=== PATIENT | male | born 1965 | race Asian ===

== ENCOUNTER → 2021-07-04 15:06 | Outpatient (BNVA) | payer OTHER, SELFPAY | PROVIDERS: PCP Internal Medicine; Referring Provider Internal Medicine; Visit Provider Nurse Practitioner Family | DX: Z12.11 Encounter for screening for malignant neoplasm of colon (principal); K62.5 Hemorrhage of anus and rectum | CPT/HCPCS: 99202 ==

== ENCOUNTER → 2021-08-07 08:21 | Outpatient (BNVA) | payer OTHER, SELFPAY | PROVIDERS: PCP Internal Medicine; Visit Provider Surgery | DX: K62.5 Hemorrhage of anus and rectum (principal) | CPT/HCPCS: 46600; 99202 ==

== ENCOUNTER 2021-08-08 09:42 | Day surgery (SDC) | payer OTHER, SELFPAY ==
[2021-07-20 11:21] VITALS: BMI 21.9
--- NOTE | 2021-08-08 10:05 | MHC.SHP ---
Pre-Procedural Eval Section A Date of Service: 08/08/21 The patient is an INPATIENT: No The History & Physical has been completed within 30 days and I have reviewed it.: No Section B Chief Complaint: Colon cancer screening, rectal bleeding Details of Present Illness: Colon cancer screening, rectal bleeding Relevant Family History (Specify if Yes): Yes Relevant Social History: None Present Medications: see Short Stay Collaborative assessment Medical History: Significant History (GERD, elevated cholesterol) History of Previous Operations: Relevant previous surgery/procedure and date(s) (Hx of hemorrhoidectomy Hx of inguinal hernia repair Hx of umbilical hernia repair) Allergies: Allergies Allergy/AdvReac Type Severity Reaction Status Date / Time No Known Allergies Allergy Verified 08/07/21 08:32 Review of Systems Sugical H&P ROS: Negative: Constitution, Cardiovascular and Respiratory and Yes, Specify: Gastrointestinal (rectal bleeding) Exam Surgical H&P Exam: Normal: Heart, Normal: Lungs, Normal: Extremities and Normal: Abdomen Plan Diagnosis/Plan: Unchanged I have reviewed the history and physical and performed a pertinent physical examination on my patient. No changes have occurred unless specified.
--- NOTE | 2021-08-08 10:07 | PM.OP ---
Brief Operative Note Date of Service: 08/08/21 Pre-op diagnosis: Colon cancer screening, rectal bleeding Post-op diagnosis: other (Rectal polyps, diverticulosis, hemorrhoids) Procedure: COLONOSCOPY TILL CECUM WITH SNARE POLYPECTOMY AND BIOPSIES Consent: Indications for the procedure and potential complications of bleeding, perforation, reaction to medications and missed diagnosis were discussed with the patient and informed consent was obtained. Instrument: Olympus PCF H 190 L variable stiffness pediatric colonoscope Monitoring: Vital signs and clinical assessment, intermittent blood pressure monitoring, continuous EKG monitoring, Pulse oximetry and Carbon Dioxide monitoring were done throughout the procedure. Colon withdrawl time was 25 minutes. Procedure: The patient was placed in the left lateral decubitis position and pre-procedure medications were administered. After a digital rectal examination of the ano-rectum, the video colonoscope was inserted into the rectum and advanced through the colon to the cecum. The colonoscope was slowly withdrawn in a retrograde panoramic fashion and the colon mucosa was carefully examined including a retroflexed view of the rectum. Findings and interventions are described below. Procedure Difficulty: Without difficulty Findings: Terminal Ileum: Not evaluated Cecum: Normal Ascending Colon: Normal Transverse Colon: Normal Descending Colon: Normal Sigmoid Colon: Moderate diverticulosis Rectum: A 2 cms hemorrhagic appearing polyp with a short pedicle just proximal to the ano-rectal junction - removed with a hot snare. Pedicle appeared to be infilterated with polypoidal tissue - multiple biopsies were obtained from the pedicle. Some oozing noted from biopsy site controlled with cautery using the snare tip. Edematous folds in the rectum which were biopsied and I was unable to perform a retroflexed exam - Ano-rectum: Small internal hemorrhoids Colon preparation: Good Impression and Post Procedure Diagnosis: Colonoscopy Findings: A 2 cms hemorrhagic appearing polyp with a short pedicle just proximal to the ano-rectal junction - removed with a hot snare. Pedicle appeared to be infilterated with polypoidal tissue - multiple biopsies were obtained from the pedicle. Some oozing noted from biopsy site controlled with cautery using the snare tip. Edematous folds in the rectum which were biopsied and I was unable to perform a retroflexed exam - One larhe polyps removed Moderate diverticulosis seen in the sigmoid colon Small hemorrhoids on antegrade withdrawl of the scope.. Plan: Await pathology results Patient has an appointment on 08/22/21 in the GI Clinic with Rae Pedersen FNP-BC. Repeat Colonoscopy interval based on path results - in 6 to 12 months rectal polyp is adenomatous or has advanced histology. Above findings were reviewed with the patient and colon polyps and diverticulosis handouts were given in the discharge area Surgeon: Braxton Reardon MD Anesthesia: MAC (Dr Turk) Was an Critical Care Rn used for this Procedure?: Yes Critical Care Rn: Dinah Wilson Estimated blood loss (mL): 2 Pathology: other (A. RECTAL POLYP B. RECTAL FOLD BXS C. RECTAL POLYP STALK) Condition: stable Disposition: PACU
--- NOTE | 2021-08-08 10:07 | W.PM.OPN ---
Operative Note Operative Note Date of Service: 08/08/21 Narrative: Pre-op diagnosis:?Colon cancer screening, rectal bleeding Post-op diagnosis:?other (Rectal polyps, diverticulosis, hemorrhoids) Procedure:? COLONOSCOPY TILL CECUM WITH SNARE POLYPECTOMY AND BIOPSIES Consent: Indications for the procedure and potential complications of bleeding, perforation, reaction to medications and missed diagnosis were discussed with the patient and informed consent was obtained. Instrument: Olympus PCF H 190 L variable stiffness pediatric colonoscope Monitoring: Vital signs and clinical assessment, intermittent blood pressure monitoring, continuous EKG monitoring, Pulse oximetry and Carbon Dioxide monitoring were done throughout the procedure. Colon withdrawl time was 25 minutes. Procedure: The patient was placed in the left lateral decubitis position and pre-procedure medications were administered. After a digital rectal examination of the ano-rectum, the video colonoscope was inserted into the rectum and advanced through the colon to the cecum. The colonoscope was slowly withdrawn in a retrograde panoramic fashion and the colon mucosa was carefully examined including a retroflexed view of the rectum. Findings and interventions are described below. Procedure Difficulty: Without difficulty Findings: Terminal Ileum: Not evaluated Cecum:? Normal Ascending Colon:? Normal Transverse Colon:? Normal Descending Colon:? Normal Sigmoid Colon:? Moderate diverticulosis Rectum:? A 2 cms hemorrhagic appearing polyp with a short pedicle just proximal to the ano-rectal junction - removed with a hot snare.? Pedicle appeared to be infilterated with polypoidal tissue - multiple biopsies were obtained from the pedicle.? Some oozing noted from biopsy site controlled with cautery using the snare tip.? Edematous folds in the rectum which were biopsied and I was unable to perform a retroflexed exam - Ano-rectum:? Small internal hemorrhoids Colon preparation:? Good? Impression and Post Procedure Diagnosis: Colonoscopy Findings: ?A 2 cms hemorrhagic appearing polyp with a short pedicle just proximal to the ano-rectal junction - removed with a hot snare.? Pedicle appeared to be infilterated with polypoidal tissue - multiple biopsies were obtained from the pedicle.? Some oozing noted from biopsy site controlled with cautery using the snare tip.? Edematous folds in the rectum which were biopsied and I was unable to perform a retroflexed exam. Moderate diverticulosis seen in the sigmoid colon Small hemorrhoids on antegrade withdrawl of the scope.. Plan: Await pathology results Patient has an appointment on 08/22/21 in the GI Clinic with Rae Pedersen FNP-BC. Repeat Colonoscopy interval based on path results - in 6 to 12 months rectal polyp is adenomatous or has advanced histology. Above findings were reviewed with the patient and colon polyps and diverticulosis handouts were given in the discharge area ADDENDUM: BIOPSIES SHOWED: A.? Rectum, polypectomy:? Cloacogenic polyp; no dysplasia or carcinoma seen. B.? Rectum, fold, biopsy:? Colonic mucosa with prominent lymphoid aggregates; no dysplasia seen. C.? Rectum, polyp stalk:? Rectal mucosa with hyperplastic inflammatory changes; no dysplasia or carcinoma seen. From UTD: Prolapse type inflammatory polyp???Prolapse type inflammatory polyps result from traction, distortion, and twisting of mucosa caused by peristalsis-induced trauma. This results in localized ischemia and lamina propria fibrosis. The classic histologic features of prolapse-induced inflammatory polyps include varying degrees of fibromuscular hyperplasia of the lamina propria, extension of the muscularis mucosae into the lamina propria, crypt elongation, hyperplasia, architectural distortion, and serration. Polyps may be associated with inflammation, ulceration, and reactive epithelial change. Based on the anatomic location of the injury and the underlying cause, these polyps are termed inflammatory cloacogenic polyps of the anal transitional zone, colitis cystica profunda, diverticular disease?associated polyps, or inflammatory cap polyps. Asymptomatic patients do not require treatment unless symptoms develop. In symptomatic patients, we perform endoscopic polypectomy. Surgical repair may be needed in patients with an associated rectal prolapse. The clinical features, diagnosis, and management of inflammatory cap polyposis are discussed in detail separat Surgeon:?Braxton Reardon MD Anesthesia:?MAC (Dr Turk) Was an Chemical Laboratory Assistant used for this Procedure?:?Yes Chemical Laboratory Assistant:?Dinah Wilson Estimated blood loss (mL):?2 Pathology:?other (A. RECTAL POLYP? B. RECTAL FOLD BXS? C. RECTAL POLYP STALK) Condition:?stable Disposition:?PACU
[2021-08-08 10:15] VITALS: BP 146/92; PULSE 96; RESP 18; TEMP 36.3; O2SAT 99
[2021-08-08] MEDS: Lactated Ringers 1,000 ML 80 ML IVCONT (10:15)
--- NOTE | 2021-08-08 11:05 | HO.ANESPROP2 ---
HPI - Anesthesia Eval Consult details Narrative: 55 M for colonoscopy [facility] Active Problems Active Problems: All Active Problems (Updated 08/07/21 @ 08:53 by Mando Fermin MD) Rectal Hemorrhage (Acute) Anemia (Acute) Past Medical History Medical History (Updated 08/07/21 @ 08:53 by Mando Fermin MD) Elevated cholesterol GERD (gastroesophageal reflux disease) Rectal Hemorrhage Family History Family History Father Diabetes Mental disorder Paternal Grandmother Throat cancer Family history of problems with anesthesia: No Surgical History Surgical History H/O colonoscopy Hx of hemorrhoidectomy Hx of inguinal hernia repair Hx of umbilical hernia repair History of Problems with Anesthesia: No Social History Social History Alcohol intake: current Alcohol intake frequency: holidays/special occasions only Alcohol type: beer Patient Tobacco Use Status: Never used Tobacco Use of substances other than those prescribed or required for medical reasons: No Advance Directives: No Advance Directives Information Provided: Yes Advance Directives on File: No Meds Allergies Allergy/AdvReac Type Severity Reaction Status Date / Time No Known Allergies Allergy Verified 08/07/21 08:32 Home Medications Medication Instructions Recorded Confirmed Last Taken Type atorvastatin 10 mg tablet 10 mg PO BEDTIME 07/04/21 08/07/21 Unknown History Exam Exam Date and Time: August 08, 2021 1105 Height,Weight and Vital Signs: Height 5 ft 6 in Weight 61.689 kg Last Vital Signs Temp 97.4 F 08/08/21 10:15 Pulse 96 08/08/21 10:15 Resp 18 08/08/21 10:15 BP 146/92 H 08/08/21 10:15 Pulse Ox 99 08/08/21 10:15 Airway Mallampati Class: I TM Dist: >3cm Neck ROM: Full Loose/Missing/Broken Teeth: Yes (Caps ) Heart: rrr Lungs: bl breath sounds Assessment and Plan Assessment Anesthesia Assessment: Anesthesia Plan Discussed Final Anesthetic Review Family History of Problems with Anesthesia: No History of Problems with Anesthesia: No NPO: Yes ASA Class: II Final Preanesthetic Review: Meds/Allgs Chart Reviewed and Anes Risks/Benef Reviewed Patient Risk: Intermediate Procedure Risk: Intermediate Anesthetic Plan Anesthetic Plan: MAC: Disposition: Standard PACU
[2021-08-08 12:06] VITALS: BP 96/61; PULSE 81; RESP 17; TEMP 36.1; O2SAT 98
[2021-08-08 12:21] VITALS: BP 116/65; PULSE 79; RESP 18; O2SAT 100
[2021-08-08 12:36] VITALS: BP 134/82; PULSE 86; RESP 16; TEMP 36.1; O2SAT 100
== END 2021-08-08 12:53 | disposition home or self-care (01) ==
PROVIDERS: PCP Internal Medicine; Visit Provider Internal Medicine Gastroenterology
PROC: 0DJD8ZZ Inspection of Lower Intestinal Tract, Via Natural or Artificial Opening Endoscopic (ICD-10-PCS; CPT 45378; principal; 2021-08-08 11:10)
DX: Z12.11 Encounter for screening for malignant neoplasm of colon (principal); K51.411 Inflammatory polyps of colon with rectal bleeding; K62.1 Rectal polyp; K57.30 Diverticulosis of large intestine without perforation or abscess without bleeding; K64.8 Other hemorrhoids; K59.00 Constipation, unspecified; K21.9 Gastro-esophageal reflux disease without esophagitis; E78.00 Pure hypercholesterolemia, unspecified; Z79.899 Other long term (current) drug therapy
CPT/HCPCS: 45385; 45380; 88305

== ENCOUNTER → 2021-08-14 13:09 | Outpatient (BNVA) | payer OTHER, SELFPAY | PROVIDERS: PCP Internal Medicine; Visit Provider Surgery | DX: Z09 Encounter for follow-up examination after completed treatment for conditions other than malignant neoplasm (principal); K62.5 Hemorrhage of anus and rectum | CPT/HCPCS: 99212 ==

== ENCOUNTER → 2021-08-22 12:42 | Outpatient (BNVA) | payer OTHER, SELFPAY | PROVIDERS: PCP Internal Medicine; Visit Provider Nurse Practitioner Family | DX: K62.5 Hemorrhage of anus and rectum (principal); K64.8 Other hemorrhoids; K62.0 Anal polyp; Z98.890 Other specified postprocedural states | CPT/HCPCS: 99212 ==

== ENCOUNTER → 2022-02-20 12:44 | Outpatient (BNVA) | payer OTHER, SELFPAY | PROVIDERS: PCP Internal Medicine; Visit Provider Nurse Practitioner Family | DX: K64.8 Other hemorrhoids (principal); Z86.010 Personal history of colon polyps | CPT/HCPCS: 99212 ==

== ENCOUNTER 2022-08-03 10:03 | Day surgery (SDC) | payer OTHER, SELFPAY ==
[2022-07-31 11:10] VITALS: BMI 22.2
[2022-08-03 11:10] VITALS: BP 140/93; PULSE 97; RESP 14; TEMP 36.6; O2SAT 96
--- NOTE | 2022-08-03 11:10 | HO.ANESPROP2 ---
HPI - Anesthesia Eval Consult details Narrative: 56 year old for sigmoidoscopy PMF Active Problems Active Problems: All Active Problems (Updated 08/07/21 @ 08:53 by Mando Fermin MD) Anemia (Acute) Rectal Hemorrhage (Acute) Past Medical History Medical History Elevated cholesterol GERD (gastroesophageal reflux disease) Rectal Hemorrhage Family History Family History Father Diabetes Mental disorder Paternal Grandmother Throat cancer Family history of problems with anesthesia: No Surgical History Surgical History (Updated 07/31/22 @ 11:05 by Kasandra Pal RN) H/O colonoscopy History of esophagogastroduodenoscopy (EGD) Hx of hemorrhoidectomy Hx of inguinal hernia repair Hx of umbilical hernia repair History of Problems with Anesthesia: No Social History Social History Alcohol intake: current Alcohol intake frequency: holidays/special occasions only Alcohol type: beer Patient Tobacco Use Status: Never used Tobacco Use of substances other than those prescribed or required for medical reasons: No Are you DNR?: No Advance Directives: No Advance Directives Information Provided: Yes Meds Allergies Allergy/AdvReac Type Severity Reaction Status Date / Time No Known Allergies Allergy Verified 02/20/22 12:52 Active Medications: Current Medications Lactated Ringer's (Lr) 1,000 mls @ 100 mls/hr IVCONT .Q10H PASTORA Home Medications Medication Instructions Recorded Confirmed Last Taken Type atorvastatin 20 mg tablet 20 mg PO DAILY 08/22/21 07/31/22 Unknown History cyanocobalamin (vitamin B-12) 1 tab PO DAILY 08/02/22 08/02/22 07/30/22 History 1,000 mcg tablet Exam Exam Date and Time: August 03, 2022 1110 Height,Weight and Vital Signs: Height 5 ft 6 in Weight 62.596 kg Airway Mallampati Class: II TM Dist: >3cm Neck ROM: Full Heart: rrr Lungs: cta Assessment and Plan Assessment Anesthesia Assessment: Anesthesia Plan Discussed and Chart Reviewed Final Anesthetic Review Family History of Problems with Anesthesia: No History of Problems with Anesthesia: No ASA Class: II Final Preanesthetic Review: No Changes in Pt Med Stat, Meds/Allgs Chart Reviewed, Consent Obtained/Reviewed and Anes Risks/Benef Reviewed Patient Risk: Low Procedure Risk: Low Anesthetic Plan Anesthetic Plan: MAC: Disposition: Standard PACU
[2022-08-03] MEDS: Lactated Ringers 1,000 ML 100 ML IVCONT (11:33)
--- NOTE | 2022-08-03 11:57 | MHC.SHP ---
Pre-Procedural Eval Section A Date of Service: 08/03/22 The patient is an INPATIENT: No The History & Physical has been completed within 30 days and I have reviewed it.: No Section B Chief Complaint: anemia,rectal bleeding Relevant Family History (Specify if Yes): No Relevant Social History: None Present Medications: see Short Stay Collaborative assessment Medical History: Significant History (Elevated cholesterol GERD (gastroesophageal reflux disease) Rectal Hemorrhage) History of Previous Operations: Relevant previous surgery/procedure and date(s) (H/O colonoscopy History of esophagogastroduodenoscopy (EGD) Hx of hemorrhoidectomy Hx of inguinal hernia repair Hx of umbilical hernia repair) Allergies: Allergies Allergy/AdvReac Type Severity Reaction Status Date / Time No Known Allergies Allergy Verified 02/20/22 12:52 Review of Systems Sugical H&P ROS: Negative: Constitution, Cardiovascular, Respiratory and Gastrointestinal Exam Surgical H&P Exam: Normal: Heart, Normal: Lungs, Normal: Extremities and Normal: Abdomen Plan Diagnosis/Plan: Unchanged I have reviewed the history and physical and performed a pertinent physical examination on my patient. No changes have occurred unless specified. Time Spent With Patient Time: Total time managing care of this patient today ____ minutes.
--- NOTE | 2022-08-03 12:04 | P.OP_ITS ---
Operative Note Operative Note Date of Service: 08/03/22 Narrative: Pre-op diagnosis: Colon cancer screening, follow-up of colon polyps Post-op diagnosis:?other (COLON POLYPS, DIVERTICULOSIS, HEMORRHOIDS) Surgeon: Braxton Reardon MD Anesthesia:?MAC FLEXIBLE SIGMOIDOSCOPY TILL 30 CM WITH BIOPSY Consent: Indications for the procedure and potential complications of bleeding, perforation, reaction to medications and missed diagnosis were discussed with the patient and informed consent was obtained. Instrument: Olympus PCF H 190 L variable stiffness pediatric colonoscope Monitoring: Vital signs and clinical assessment, intermittent blood pressure monitoring, continuous EKG monitoring, Pulse oximetry and Carbon Dioxide monitoring were done throughout the procedure. Procedure: The patient was placed in the left lateral decubitis position and pre-procedure medications were administered. After a digital rectal examination of the ano-rectum, the video colonoscope was inserted into the rectum and advanced through the colon to 30 cms into the sigmoid colon. The colonoscope was slowly withdrawn in a retrograde panoramic fashion and the colon mucosa was carefully examined including a retroflexed view of the rectum. Findings and interventions are described below. Procedure Difficulty: Without difficulty Findings: Sigmoid Colon: Moderate diverticulosis Rectum: A few 3-5 mm diminutive appearing polyps - one removed by cold bx. Polypectomy site visualized in the distal rectum with a 4-5 mm diminutive appearing polyp - removed with a cold bx. Ano-rectum: Small internal hemorrhoids Colon preparation: Good Impression and Post Procedure Diagnosis: Colonoscopy Findings: Two small polyps removed Polypectomy site visualized in the distal rectum with a 4-5 mm diminutive appearing polyp. Moderate diverticulosis seen in the sigmoid colon Small hemorrhoids on antegarde exam. Plan: Await pathology results Patient has an appointment on 08/17/22 in the GI Clinic with Rae Pedersen FNP- BC . Repeat Colonoscopy interval based on path results - in 5 years if polyps are adenomatous and due to past hx of colon polyps. Above findings were reviewed with the patient and colon polyps handout was given in the discharge area
--- NOTE | 2022-08-03 12:04 | PM.OP ---
Brief Operative Note Date of Service: 08/03/22 Pre-op diagnosis: Colon cancer screening, follow-up of colon polyps Post-op diagnosis: other (COLON POLYPS, DIVERTICULOSIS, HEMORRHOIDS) Procedure: FLEXIBLE SIGMOIDOSCOPY TILL 30 CM WITH BIOPSIES Surgeon: Braxton Reardon MD Anesthesia: MAC Was an Vp Software Engineering used for this Procedure?: Yes Vp Software Engineering: Dinah Wilson Estimated blood loss (mL): 0 Pathology: other (A. rectal polyp B. rectal polyp @ polypectomy site) Condition: stable Disposition: PACU
[2022-08-03 12:30] VITALS: BP 110/71; PULSE 86; RESP 17; TEMP 36.7; O2SAT 100
[2022-08-03 12:49] VITALS: BP 117/72; PULSE 72; RESP 18; TEMP 36.2; O2SAT 100
== END 2022-08-03 13:10 | disposition home or self-care (01) ==
PROVIDERS: PCP Internal Medicine; Visit Provider Internal Medicine Gastroenterology
PROC: 0DJD8ZZ Inspection of Lower Intestinal Tract, Via Natural or Artificial Opening Endoscopic (ICD-10-PCS; CPT 45330; principal; 2022-08-03 11:20)
DX: Z12.11 Encounter for screening for malignant neoplasm of colon (principal); Z86.010 Personal history of colon polyps; K62.1 Rectal polyp; K57.30 Diverticulosis of large intestine without perforation or abscess without bleeding; K64.8 Other hemorrhoids; D64.9 Anemia, unspecified; K62.5 Hemorrhage of anus and rectum; K21.9 Gastro-esophageal reflux disease without esophagitis; E78.00 Pure hypercholesterolemia, unspecified; Z79.899 Other long term (current) drug therapy
CPT/HCPCS: 45331; 88305

== ENCOUNTER 2022-08-17 12:44 | Outpatient (REF) | payer OTHER, SELFPAY ==
[2022-08-17 14:46] LABS: Alanine Aminotransferase 32 U/L (0-40); Albumin Level 4.3 g/dL (3.5-5.0); Alkaline Phosphatase 103 U/L (39-117); Aspartate Amino Transferase 24 U/L (5-37); Bilirubin Direct 0.2 mg/dL (0.0-0.5); Bilirubin Total 0.7 mg/dL (0.0-1.0); Lipase 57 U/L (8-78); Total Protein 7.3 g/dL (6.5-8.0)
[2022-08-17 15:19] LABS: Folate 8.9 ng/mL (> or = 4.0); TSH reflex Free T4 1.68 uIU/mL (0.32-4.0); Vitamin B12 < 148 pg/mL (200-900)
[2022-08-21 08:04] LABS: Transglutaminase Ab IgG <1.0 U/mL; Transglutaminase IgA <1.0 U/mL
[2022-08-24 16:13] LABS: Vitamin D 25-OH, D2 <4 ng/mL; Vitamin D 25-OH, D3 7 ng/mL; Vitamin D 25-OH, Total 7 ng/mL (30-100)
== END 2022-08-17 12:45 | disposition home or self-care (01) ==
LOC: HO.LAB 12:44
PROVIDERS: PCP Internal Medicine; Visit Provider Nurse Practitioner Family
DX: K64.8 Other hemorrhoids (principal); K62.0 Anal polyp; K21.9 Gastro-esophageal reflux disease without esophagitis; K58.2 Mixed irritable bowel syndrome; R10.9 Unspecified abdominal pain; K59.00 Constipation, unspecified; R19.7 Diarrhea, unspecified; E55.9 Vitamin D deficiency, unspecified
CPT/HCPCS: 36415; 80076; 82306; 82607; 82746; 83690; 84443; 86364; 99212

== ENCOUNTER 2022-08-20 14:21 | Outpatient (REF) | payer OTHER, SELFPAY ==
[2022-08-27 23:43] LABS: Pancreatic Elastase-1 >500 mcg/g
== END 2022-08-20 14:22 | disposition home or self-care (01) ==
LOC: HO.LNP 14:21
PROVIDERS: Visit Provider Nurse Practitioner Family
DX: R10.9 Unspecified abdominal pain (principal)
CPT/HCPCS: 82656

== ENCOUNTER 2023-05-06 15:51 | Outpatient (AMB) | payer OTHER, SELFPAY ==
[2023-05-06 15:55] VITALS: BP 132/86; PULSE 85; O2SAT 99; BMI 22.6
--- NOTE | 2023-05-06 15:55 | A.OFFVIS_ITS ---
Intake Vital Signs 05/06/23 15:55 Height 5 ft 6 in Weight 140 lb 3.424 oz BMI 22.6 BP 132/86 Blood Pressure Location Rt brachial Position Sitting Pulse 85 Pulse Source Pulse Oximeter Pulse Oximetry (%) 99 Oxygen Delivery Method Room Air Intake Visit Reasons: follow up from AUG 2022 Intake Note: Pt presents to the office today for a follow up. Pt states he is feeling well and denies any N/V/D or any GERD symptoms. Allergies No Known Allergies Allergy (Verified 05/06/23 15:56) HPI follow up from AUG 2022 HPI Details LAST VISIT Internal hemorrhoid Patient denies any rectal pain, bleeding. Inflammatory cloacogenic polyp Hyperplastic rectal polyp found on sigmoidoscopy. Repeat colonoscopy in 5 years, sooner if symptomatic GERD (gastroesophageal reflux disease) Discussed with patient avoiding dietary triggers and late night snacking. Staying upright for minimal 3 hours after meals discussed with patient. Patient can use Pepcid on as needed basis. IBS (irritable bowel syndrome) Discussed with patient all FODMAP diet. Postprandial bloating. Patient states that he eats lots of wheat. Will check for celiac, check vitamin B12, folate, lipase, liver panel, thyroid study, vitamin-D. I will see patient in 2 months, sooner on as needed basis. Patient is agreeable to this plan and verbalizes understanding of instructions. He was given the opportunity to ask questions and all questions answered. ? Thank you for allowing me to participate in his care Plan Orders Orders Pancreatic Elastase-1 Today R10.9 Vitamin B12 and Folate Today R19.7 Lipase Today R10.9 Liver Panel Today R10.9 TSH reflex Free T4 Today K59.00 Vitamin D 25-OH (D2 and D3) Today E55.9 Transglutaminase IgA Today R10.9 Transglutaminase Ab IgG Today R10.9 Medications New famotidine (Pepcid) 20 mg PO BEDTIME 30 tabs 3RF K21.9 methylcellulose (laxative) (Citrucel) take it with full glass of water 500 mg PO DAILY 90 tabs 2RF K59.00 TODAY'S VISIT Patient is here today for follow-up. He reports that he has been feeling better. Patient is avoiding dietary triggers. Reports that he is moving his bowels without any issues. Patient was found to have low vitamin B12 and vitamin-D levels has been taking supplements. Patient denies any dyspepsia, dysphagia or odynophagia. Rest of his blood work was normal. No pancreatic insufficiency found. Normal thyroid study, an normal liver enzymes, lipase. Patient denies any melena, hematochezia, unintentional weight loss or ribbon like stools. Patient will need to repeat colonoscopy in July of 2027. Patient denies any GI concerning symptoms. [facility] Medical History Rectal Hemorrhage GERD (gastroesophageal reflux disease) Elevated cholesterol Surgical History History of esophagogastroduodenoscopy (EGD) H/O colonoscopy Hx of hemorrhoidectomy Hx of umbilical hernia repair Hx of inguinal hernia repair Family History Father Diabetes Mental disorder Paternal Grandmother Throat cancer Social History Alcohol intake: current Alcohol intake frequency: holidays/special occasions only Alcohol type: beer Patient Tobacco Use Status: Never used Tobacco Review of Systems Const Denies weight gain and Denies weight loss ENT Reports no additional complaints, Denies dysphagia and Denies odynophagia Card Reports no additional complaints Resp Reports no additional complaints GI Denies abdominal pain, Denies belching, Denies melena, Denies bloating, Denies change in bowel habits, Denies dysphagia, Denies excessive flatus, Denies dyspepsia, Denies heartburn, Denies diarrhea, Denies loose stools, Denies nausea, Denies odynophagia and Denies vomiting Reports no additional complaints Musc Reports no additional complaints Neuro Reports no additional complaints Psych Reports no additional complaints Endo Reports no additional complaints Physical Exam Vital Signs: Last Vital Signs Pulse 85 05/06/23 15:55 BP 132/86 05/06/23 15:55 Pulse Ox 99 05/06/23 15:55 Oxygen Delivery Method Room Air 05/06/23 15:55 BMI result Body Mass Index 22.6 Const General: healthy appearing, no acute distress and well developed Nutritional Appearance: well nourished Orientation/consciousness: patient oriented x3 HEENT Head: Yes normal to inspection, Yes normocephalic and Yes atraumatic Face and sinus: Yes normal facial exam Mouth: Normal oral and palatal mucosa present Throat: Yes posterior oropharynx normal, Yes tonsils normal and Yes uvula midline Eyes General: appearance normal, both eyes and all related structures Neck Neck: Yes normal visual inspection, Yes full ROM and Yes trachea midline Thyroid: Thyroid normal Resp Effort & Inspection: normal respiratory effort, able to speak in complete sentences, no tracheal deviation and symmetric chest movement Auscultation: clear to auscultation bilaterally Cardio Rate: regular rate Heart sounds: S1 normal heart sound present and S2 normal heart sound present GI Inspection: Yes normal to inspection and No distended Palpation (GI): Soft to palpation, not firm, nontender and No hepatosplenomegaly present Auscultation: normal bowel sounds General: Yes no CVA tenderness Back/Spine/Pelvis Back: no CVA tenderness Skin General skin exam: elasticity normal, turgor normal and dry skin Neuro General: patient oriented x3 Psych Appearance: grossly normal Mental Status: mental status grossly normal Results Reviewed Results Reviewed: Laboratory Tests 08/17/22 08/17/22 08/20/22 13:48 13:48 07:00 AST 24 ALT 32 Lipase 57 Vitamin B12 < 148 L 25-OH Vitamin D Total 7 L Folate 8.9 TSH 1.68 Stool Pancreat Elastase >500 Tiss Transglutamin IgG <1.0 Tiss Transglutamin IgA <1.0 Assessment & Plan Assessment & Plan (1) Internal hemorrhoid: Code(s): K64.8 - Other hemorrhoids (2) GERD (gastroesophageal reflux disease): Code(s): K21.9 - Gastro-esophageal reflux disease without esophagitis Qualifiers: Esophagitis presence: esophagitis presence not specified Qualified Code(s): K21.9 - Gastro-esophageal reflux disease without esophagitis (3) IBS (irritable bowel syndrome): Code(s): K58.9 - Irritable bowel syndrome without diarrhea Qualifiers: Irritable bowel syndrome type: without diarrhea Qualified Code(s): K58.9 - Irritable bowel syndrome without diarrhea (4) Hypovitaminosis D: Code(s): E55.9 - Vitamin D deficiency, unspecified (5) Vitamin B12 deficiency: Code(s): E53.8 - Deficiency of other specified B group vitamins Plan Patient can continue current diet. Avoid dietary triggers in late night snackin g. Staying upright for minimal 3 hours after meals discussed with him. Continue taking vitamin-D and B12. Patient will follow-up with us on as-needed basis. His colonoscopy will be due in July of 2027, sooner if clinically necessary. Patient is agreeable to this plan and verbalizes understanding of instructions. He was given the opportunity to ask questions and all questions answered. Thank you for allowing me to participate in his care Medications: New cyanocobalamin (vitamin B-12) 1,000 mcg PO DAILY 90 caps 2RF Refilled cholecalciferol (vitamin D3) 50 mcg PO DAILY 90 caps 3RF R79.89 - Other specified abnormal findings of blood chemistry Coding Level of Care Code Est Pt Level 3 (49084) Diagnoses Internal hemorrhoid K64.8 Gastroesophageal reflux disease, unspecified whether esophagitis present K21.9 Esophagitis presence: esophagitis presence not specified Irritable bowel syndrome without diarrhea K58.9 Irritable bowel syndrome type: without diarrhea Hypovitaminosis D E55.9 Vitamin B12 deficiency E53.8 Time Spent (min) 25 Comment 15 minutes spent with patient and additional 10 minutes spent reviewing his records
== END 2023-05-06 16:22 | disposition home or self-care (01) ==
PROVIDERS: PCP Internal Medicine; Visit Provider Nurse Practitioner Family
DX: K64.8 Other hemorrhoids (principal); K21.9 Gastro-esophageal reflux disease without esophagitis; K58.9 Irritable bowel syndrome, unspecified; E55.9 Vitamin D deficiency, unspecified; E53.8 Deficiency of other specified B group vitamins
CPT/HCPCS: 99213

== ENCOUNTER → 2023-05-06 15:51 | Outpatient (BNVA) | payer OTHER, SELFPAY | PROVIDERS: PCP Internal Medicine; Visit Provider Nurse Practitioner Family | DX: K64.8 Other hemorrhoids (principal); K21.9 Gastro-esophageal reflux disease without esophagitis; K58.9 Irritable bowel syndrome, unspecified; E55.9 Vitamin D deficiency, unspecified; E53.8 Deficiency of other specified B group vitamins | CPT/HCPCS: 99212 ==